=== PATIENT | male | born 1990 | race Caucasian/White ===

== ENCOUNTER 2018-01-02 17:33 | Inpatient (IN) | payer OTHER, SELFPAY ==
[~2018-01-02 17:33] MED LIST: ISOVUE-370 76%-LOCM 1 ML ONE
[2018-01-02] MEDS ORDERED: Adacel (T-DAP) 0.5 ML VIAL ONE (18:16)
[2018-01-02] MEDS ORDERED: Ondansetron PF 4 MG/2 ML Vial ONE (18:16)
[2018-01-02] MEDS ORDERED: Fentanyl 100 MCG/2 ML VIAL ONE (18:16)
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
[2018-01-02] MEDS ORDERED: Proparacaine 0.5% Opth 15 ML BOT ONE (19:46)
[2018-01-02] MEDS ORDERED: CEFAZOLIN/Water 2 GM/20 ML SYRINGE ONE (19:47)
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
[2018-01-02] MEDS ORDERED: Ondansetron PF 4 MG/2 ML Vial IVP PRN (21:09)
[2018-01-02] MEDS ORDERED: hydrALAZINE 20 MG/ML VIAL SLOW IVP PRN (21:09)
[2018-01-02] MEDS ORDERED: Promethazine HCl 25 MG/ML VIAL IM PRN (21:09)
[2018-01-02] MEDS ORDERED: Dextrose 50% Abboject 50 ML SYRINGE SLOW IVP PRN (21:09)
[2018-01-02] MEDS ORDERED: Dextrose 5% in Water 1,000 ML IV PRN (21:09)
[2018-01-02] MEDS ORDERED: Ondansetron ODT 4 MG TAB PO PRN (21:09)
[2018-01-02 21:20] VITALS: BMI 21.8
[2018-01-02] MEDS: CEFAZOLIN/Water 2 GM/20 ML SYRINGE SLOW IVP SCH (21:20)
[2018-01-02] MEDS ORDERED: Famotidine 20 MG TAB PO SCH (21:45)
[2018-01-02] MEDS: Sodium Chloride 0.9% 1,000 ML IV SCH (21:49)
[2018-01-02] MEDS: HYDROcodone/Acetaminophen 10/325 mg Tablet PO PRN (22:38)
[2018-01-03] MEDS: CEFAZOLIN/Water 2 GM/20 ML SYRINGE SLOW IVP SCH ×2 (04:34→12:08)
[2018-01-03] MEDS: HYDROcodone/Acetaminophen 10/325 mg Tablet PO PRN ×3 (04:39→21:01)
[2018-01-03] MEDS: Sodium Chloride 0.9% 1,000 ML IV SCH ×3 (06:30→23:12)
[2018-01-03 07:28] LABS: #Basophils 0.1 thou/uL (0.0-0.2); #Eosinphils 0.1 thou/uL (0.0-0.7); #Lymphocytes 1.6 thou/uL (1.20-3.40); #Neutrophils 7.3 thou/uL (1.40-6.50); %Basophils 0.5 % (0.0-1.0); %Eosinophils 1.3 % (0.0-10.0); %Lymphocytes 15.4 % (21.0-51.0); %Monocytes 10.1 % (0.0-10.0); %Neutrophils 72.7 % (42.0-75.0); Hemoglobin 14.4 g/dL (14.0-18.0); Mean Corpuscular HGB CONC 32.9 g/dL (32.0-36.0); Mean Corpuscular Hemoglobin 31.5 pg (27.0-31.0); Mean Corpuscular Volume 95.6 fL (78.0-98.0); Mean Platelet Volume 6.1 fL (7.4-10.4); Platelet Count 238 thou/uL (130-400); RBC Distribution Width 11.6 % (11.5-14.5); Red Blood Cell (RBC) Count 4.59 mill/uL (4.70-6.10); White Blood Cell (WBC) Count 10.1 thou/uL (4.8-10.8)
[2018-01-03] MEDS: Famotidine 20 MG TAB PO SCH ×2 (08:53→21:02)
[2018-01-03] MEDS ORDERED: Ondansetron PF 4 MG/2 ML Vial ONE (11:28)
[2018-01-03] MEDS ORDERED: Dexamethasone 20 MG/5 ML VIAL ONE (11:28)
[2018-01-03] MEDS ORDERED: Glycopyrrolate 0.2 MG/ML 5 ML SYRINGE ONE (11:28)
[2018-01-03] MEDS ORDERED: Lidocaine 1% PF 5 ML VIAL ONE (11:28)
[2018-01-03] MEDS ORDERED: PROPOFOL 200 MG/20 ML VIAL ONE (11:28)
[2018-01-03] MEDS ORDERED: Ketorolac Tromethamine 30 MG/ML VIAL ONE (11:28)
[2018-01-03] MEDS ORDERED: Ketorolac Tromethamine 30 MG/ML VIAL IVP PRN (11:29)
[2018-01-03] MEDS ORDERED: Acetaminophen 1,000 MG in Premix Bag 1 BAG IVPB PRN (11:32)
[2018-01-03] MEDS ORDERED: Fentanyl 100 MCG/2 ML VIAL ONE ×2 (13:47→15:42)
[2018-01-03] MEDS ORDERED: Midazolam HCl 2 mg/2 ml Vial ONE ×2 (13:47→15:42)
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
[2018-01-03] MEDS ORDERED: Bupivacaine PF 0.5% 30 ML VIAL ONE (17:34)
[2018-01-03] MEDS ORDERED: Promethazine HCl 25 MG/ML VIAL SLOW IVP PRN (18:06)
[2018-01-03] MEDS ORDERED: Promethazine HCl 25 MG/ML VIAL IM PRN (18:06)
[2018-01-03] MEDS ORDERED: HYDROmorphone 2 MG/ML VIAL SLOW IVP PRN (18:06)
[2018-01-03] MEDS ORDERED: Ondansetron HCl/PF 4 MG/2 ML Vial IVP PRN (18:06)
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
[2018-01-03] MEDS ORDERED: CEFAZOLIN 2 GM/50 ML BAG IVPB SCH (20:00)
[2018-01-04] MEDS: CEFAZOLIN 2 GM/50 ML BAG IVPB SCH ×2 (01:26→08:15)
[2018-01-04] MEDS: HYDROcodone/Acetaminophen 10/325 mg Tablet PO PRN (03:33)
[2018-01-04] MEDS: Sodium Chloride 0.9% 1,000 ML IV SCH (08:09)
[2018-01-04] MEDS: Famotidine 20 MG TAB PO SCH (08:13)
[2018-01-04] MEDS ORDERED: traMADol HCl 50 MG TAB PO PRN (08:19)
[2018-01-04] MEDS ORDERED: Gabapentin 300 MG CAP PO SCH (09:00)
[2018-01-04] MEDS ORDERED: traMADol HCl 50 MG TAB PO SCH (12:00)
[2018-01-04] MEDS ORDERED: Acetaminophen 500 MG TAB PO SCH (12:00)
[2018-01-04] MEDS ORDERED: HYDROcodone/Acetaminophen 10/325 mg Tablet PO PRN (12:56)
[2018-01-04] MEDS ORDERED: Ibuprofen 800 MG TAB PO SCH (14:00)
[2018-01-04 15:54] VITALS: BP 116/69; TEMP 98.2
[2018-01-04] MEDS ORDERED: Aspirin 81 mg Enteric Coated Tablet PO SCH (21:00)
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
== END 2018-01-04 15:50 | disposition home or self-care (01) | DRG 511 ==
LOC: ERS 17:33 → SURG A 19:00
PROVIDERS: ADMIT Surgery; ATTEND Surgery
PROC: 0PSL04Z Reposition Left Ulna with Internal Fixation Device, Open Approach (ICD-10-PCS; principal; 2018-01-02)
DX: S52.022A Displaced fracture of olecranon process without intraarticular extension of left ulna, initial encounter for closed fracture (principal); S32.039A Unspecified fracture of third lumbar vertebra, initial encounter for closed fracture; S32.10XA Unspecified fracture of sacrum, initial encounter for closed fracture; V49.9XXA Car occupant (driver) (passenger) injured in unspecified traffic accident, initial encounter
CPT/HCPCS: 29105; 36415; 70450; 71260; 72125; 74177; 76001; 85025; 90471; 90715; 96374; 96375; C1713; G0390; J1885; J2250; J2270; J2405; J3010; S0020

== ENCOUNTER 2018-03-04 10:00 | Observation (INO) | payer SELFPAY ==
--- NOTE | 2018-03-04 10:54 | RAD ---
3 VIEWS LEFT ELBOW: Date: 03/04/18 COMPARISON: 01/02/18. HISTORY: Status post open reduction and internal fixation, possible infection. FINDINGS: Evaluation for elbow joint effusion is technically limited, but an elbow joint effusion is suspected. Postoperative hardware associated with open reduction and internal fixation is noted at the level of the proximal ulna. The skin and soft tissues are markedly thinned at the proximal level of the plate which may include exposed hardware. No acute fracture or dislocation. IMPRESSION: Question nonspecific elbow joint effusion, which could be related to infection or trauma. There is a suggestion that the plate may be exposed at the level of the olecranon. Orthopedic consultation advis ed. POS: [facility]
[2018-03-04] MEDS ORDERED: Fentanyl 100 MCG/2 ML VIAL ONE ×3 (10:56→14:15)
[2018-03-04 11:04] LABS: #Eosinphils 0.2 thou/uL (0.0-0.7); #Lymphocytes 2.5 thou/uL (1.20-3.40); #Monocytes 0.4 thou/uL (0.11-0.59); %Basophils 0.7 % (0.0-1.0); %Eosinophils 2.6 % (0.0-10.0); %Lymphocytes 40.9 % (21.0-51.0); %Neutrophils 48.8 % (42.0-75.0); Hemoglobin 14.8 g/dL (14.0-18.0); Mean Corpuscular HGB CONC 32.7 g/dL (32.0-36.0); Mean Corpuscular Hemoglobin 31.1 pg (27.0-31.0); Mean Corpuscular Volume 95.2 fL (78.0-98.0); Mean Platelet Volume 6.3 fL (7.4-10.4); Platelet Count 311 thou/uL (130-400); Red Blood Cell (RBC) Count 4.76 mill/uL (4.70-6.10); White Blood Cell (WBC) Count 6.1 thou/uL (4.8-10.8)
[2018-03-04 11:28] LABS: ALT (SGPT) 9 U/L (8-55); AST (SGOT) 15 U/L (5-34); Albumin 4.2 g/dL (3.5-5.0); Alkaline Phosphatase 106 U/L (40-150); Anion Gap 13 mmol/L (10-20); BUN (Urea Nitrogen) 15 mg/dL (8.9-20.6); Bilirubin, Total 0.4 mg/dL (0.2-1.2); Calc. Creatinine Clearance 0 mL/min (70-130); Calcium 9.8 mg/dL (7.8-10.44); Carbon Dioxide 25 mmol/L (22-29); Chloride 106 mmol/L (98-107); Estimated GFR-MDRD Greater than 90; Globulin 3.1 g/dL (2.4-3.5); Glucose 85 mg/dL (70-105); Potassium 4.1 mmol/L (3.5-5.1); Protein, Total 7.3 g/dL (6.0-8.3); Sodium 140 mmol/L (136-145)
[2018-03-04] MEDS ORDERED: Neomycin-Polymyxin 1 ML AMP ONE (11:29)
[2018-03-04] MEDS ORDERED: CEFAZOLIN 2 GM/50 ML BAG ONE (11:32)
[2018-03-04] MEDS ORDERED: Promethazine HCl 25 MG/ML VIAL SLOW IVP PRN ×2 (13:57→15:42)
[2018-03-04] MEDS ORDERED: Morphine 4 MG/ML VIAL SLOW IVP PRN (13:57)
[2018-03-04] MEDS ORDERED: Ondansetron PF 4 MG/2 ML Vial SLOW IVP PRN (13:58)
[2018-03-04] MEDS: Sodium Chloride 0.9% 1,000 ML IV SCH (15:03)
[2018-03-04] MEDS: HYDROcodone/Acetaminophen 10/325 mg Tablet PO PRN ×2 (15:27→21:46)
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
[2018-03-04] MEDS ORDERED: HYDROmorphone 2 MG/ML VIAL SLOW IVP PRN (15:42)
[2018-03-04] MEDS ORDERED: Ondansetron HCl/PF 4 MG/2 ML Vial IVP PRN (15:42)
[2018-03-04] MEDS ORDERED: Promethazine HCl 25 MG/ML VIAL IM PRN (15:42)
[2018-03-04] MEDS ORDERED: Ketorolac Tromethamine 30 MG/ML VIAL ONE (16:25)
[2018-03-04] MEDS ORDERED: Sterile Water 10 ML VIAL ONE (16:25)
[2018-03-04] MEDS ORDERED: Ondansetron PF 4 MG/2 ML Vial ONE (16:25)
[2018-03-04] MEDS ORDERED: Vecuronium 10 MG VIAL ONE (16:25)
[2018-03-04] MEDS ORDERED: PROPOFOL 200 MG/20 ML VIAL ONE (16:25)
[2018-03-04] MEDS ORDERED: Dexamethasone 20 MG/5 ML VIAL ONE (16:25)
[2018-03-04] MEDS ORDERED: Lidocaine 1% PF 5 ML VIAL ONE (16:25)
[2018-03-04] MEDS ORDERED: Glycopyrrolate 0.2 MG/ML 5 ML SYRINGE ONE (16:25)
[2018-03-04] MEDS: CEFAZOLIN 2 GM/50 ML BAG IVPB SCH (20:07)
[2018-03-05] MEDS: Sodium Chloride 0.9% 1,000 ML IV SCH (02:15)
[2018-03-05] MEDS: CEFAZOLIN 2 GM/50 ML BAG IVPB SCH (03:42)
[2018-03-05] MEDS: HYDROcodone/Acetaminophen 10/325 mg Tablet PO PRN ×2 (03:47→08:09)
[2018-03-05 08:15] VITALS: BP 116/65; TEMP 98.1
== END 2018-03-05 08:30 | disposition home or self-care (01) ==
LOC: ERS 10:00 → SURG B 14:31
PROVIDERS: ADMIT Orthopaedic Surgery; ATTEND Orthopaedic Surgery
PROC: 0PPL04Z Removal of Internal Fixation Device from Left Ulna, Open Approach (ICD-10-PCS; principal; 2018-03-04)
DX: T84.193A Other mechanical complication of internal fixation device of bone of left forearm, initial encounter (principal); F90.9 Attention-deficit hyperactivity disorder, unspecified type; F17.210 Nicotine dependence, cigarettes, uncomplicated
CPT/HCPCS: 80053; 85025; 86140; 87070; 87077; 87186; 87205; 96361; 96365; 96366; 96374; 96375; 96376; A4216; G0378; J1100; J1885; J2001; J2270; J2405; J2704; J3010